=== PATIENT | male | born 1980 | race Hispanic/Latino ===

== ENCOUNTER 2018-11-11 16:18 | Emergency (ER) | payer SELFPAY ==
[2018-11-11] MEDS ORDERED: Lidocaine 1% w/Epinephrine 1:100K 20 ML VIAL ONE ×2 (16:39→16:42)
[2018-11-11] MEDS ORDERED: Adacel (T-DAP) 0.5 ML SYRINGE ONE (16:42)
== END 2018-11-11 17:11 | disposition home or self-care (01) ==
LOC: ERS 16:18
DX: S41.111A Laceration without foreign body of right upper arm, initial encounter (principal); F41.9 Anxiety disorder, unspecified; W45.8XXA Other foreign body or object entering through skin, initial encounter; Z23 Encounter for immunization
CPT/HCPCS: 12001; 90471; 90715; J2001

== ENCOUNTER 2023-03-24 09:01 | Emergency (ER) | payer SELFPAY ==
[2023-03-24] MEDS ORDERED: Ibuprofen 200 MG TAB ONE (10:17)
[2023-03-24] MEDS ORDERED: Amoxicillin/Potassium Clav 875 MG TAB ONE (12:49)
== END 2023-03-24 12:55 | disposition home or self-care (01) ==
LOC: ERS 09:01
DX: S02.5XXA Fracture of tooth (traumatic), initial encounter for closed fracture (principal); W18.09XA Striking against other object with subsequent fall, initial encounter; Y93.89 Activity, other specified
CPT/HCPCS: 70486